=== PATIENT | female | born 1980 | race African-American/Black ===

== ENCOUNTER 2021-07-26 16:18 | Outpatient (CLI) | payer BC, SELFPAY ==
--- NOTE | ~2021-07-26 | US_ITS ---
EXAMINATION: US pelvic complete w TV DATE: 07/26/2021 17:08 INDICATION: Leiomyoma of uterus, unspecified. TECHNIQUE: Multiple transabdominal and transvaginal sonographic images of the pelvis were obtained. COMPARISON: Ultrasound 05/28/2011 FINDINGS: TRANSABDOMINAL ULTRASOUND: The uterus measures 15.3 x 13.8 x 7.9 cm. There is a 7.2 cm intramural fibroid. There is a 6.7 cm sub serosal fibroid in the right. There is a 3.0 cm intramural fibroid. There is a 4.2 cm intramural fibr oid. There is no free fluid in the pelvis. TRANSVAGINAL ULTRASOUND: The endometrial complex measures 10 mm in thickness. The ovaries are not visualized. IMPRESSION: 1. Uterine fibroids. Reviewed, dictated and finalized at location A. EPERSON IMPRESSION: 1. Uterine fibroids.
== END 2021-07-26 16:19 | disposition home or self-care (01) ==
LOC: ANHIMG 16:20
PROVIDERS: PCP Internal Medicine; Visit Provider Obstetrics & Gynecology
DX: D25.9 Leiomyoma of uterus, unspecified (principal)
CPT/HCPCS: 76830; 76856

== ENCOUNTER → 2021-11-16 16:25 | Outpatient (CLI) | payer BC, SELFPAY ==
--- NOTE | ~2021-11-16 | MM_ITS ---
EXAMINATION: MM screening ramakrishna BI w miri HISTORY: Screening mammogram TECHNIQUE: Craniocaudal and mediolateral oblique 3-D tomosynthesis images were obtained and synthetic 2-D images were generated. CAD analysis was submitted and interpreted. COMPARISON: 11/21/2015 Limited right breast ultrasound BREAST PARENCHYMAL COMPOSITION: The breasts are heterogeneously dense, which may obscure small masses . FINDINGS: There is no evidence of suspicious mass, calcification, or architectural distortion to sugg est malignancy in either breast. There has been no suspicious interval change. IMPRESSION: 1. No mammographic evidence of malignancy. 2. Recommend routine screening mammography in one year. BI-RADS Category 1: Negative Reviewed, dictated and finalized at location A.
== END ==
PROVIDERS: PCP Internal Medicine; Visit Provider Obstetrics & Gynecology
DX: Z12.31 Encounter for screening mammogram for malignant neoplasm of breast (principal)
CPT/HCPCS: 77063; 77067

== ENCOUNTER 2023-04-16 09:25 | Outpatient (CLI) | payer OTHER, SELFPAY ==
[2023-04-16 10:08] LABS: Hematocrit 29.4 % (37.0-47.0); Hemoglobin 8.3 g/dL (12.0-15.0); Mean Corpuscular HGB Conc 28.2 g/dl (32-36); Mean Corpuscular Hemoglobin 21.6 pg (26-34); Mean Corpuscular Volume 76.6 fl (80-100); Platelet Count Result 455 k/mm3 (150-375); Red Blood Count 3.84 M/mm3 (4.2-5.4); Red Cell Distribution Width 24.1 % (11.5-14.5); White Blood Count 6.1 K/mm3 (4.5-10.0)
== END 2023-04-16 09:26 | disposition home or self-care (01) ==
PROVIDERS: PCP Internal Medicine; Visit Provider Obstetrics & Gynecology
DX: N93.9 Abnormal uterine and vaginal bleeding, unspecified (principal); D25.9 Leiomyoma of uterus, unspecified
CPT/HCPCS: 36415; 85027; 86850; 86900; 86901

== ENCOUNTER 2023-04-19 11:45 | Inpatient (IN) | payer OTHER, SELFPAY ==
[2023-04-11 17:57] VITALS: BMI 26.1
--- NOTE | 2023-04-11 18:04 | PC.NURSE ---
Report to the Outpatient Waiting Room, entrance under the green pavilion located off [facility], at 0600 on 04-19-23. Planned Procedure Time: 0730. Time changes happen often and if your time is changed the preop area will call you the afternoon before. - You and your visitor will be asked to self-screen and do not enter if you have any COVID symptoms. - A mask is optional within the hospital at this time. Patients may have clear liquids (water, carbonated beverages, clear teas, apple juice) until 3 hours prior to surgery with a maximum of 20 ounces. 0430 - No food from midnight until time of surgery - Infants may have breast milk until 4 hours before surgery, formula 6 hours prior to surgery. - Children will be allowed to drink immediately following surgery. If applicable, please bring a bottle or sippy cup to assist with drinking. Juice, water, soda, and popsicles are readily available. For infants on formula, please bring formula the day of surgery. Pacifiers are allowed. Take the following medications with a SIP of water the morning of surgery: None DO NOT STOP ANY OF YOUR OTHER PRESCRIPTION MEDICATIONS PRIOR TO SURGERY ?EXCEPT THE FOLLOWING Medications to discontinue per physician: Vitamins and supplements Date to take last dose: 04-16-23 Please no make-up, nail bruneian, hairspray, perfume, deodorant, or body powder the day of surgery. No jewelry (including any body piercings) or valuables the day of surgery, leave them at home. Please take a shower or bath the night before, or the morning of, surgery with an antibacterial soap. Wear comfortable, loose fitting clothing. Children are encouraged to wear pajamas. - Jewelry must be removed prior to entering the operating room. Rings and piercings that are not removed may be cut off. - The hospital will not accept responsibility for valuables. - Please leave all valuables, including medications, at home the day of surgery. If you are going home after surgery, a licensed school bus driver/custodian must drive you home. - NO public transportation without another adult if you receive anesthesia. - We recommend that an adult stay with you for 24 hours following discharge. - We also recommend that you do not drive, make important decision, drink alcoholic beverages, or take any drugs that were not prescribed by your health care provider for at least 24 hours after your discharge time. For Pediatric surgeries, we recommend two adults accompany the child home. Follow any additional instructions given to you from your surgeon. If you or anyone in your household have experienced Covid symptoms in the past week, please notify your surgeon or the nurse liaison at the phone number below for possible testing. Telephone instructions given to Kimberlyn Cosby and asked if any additional questions and then verbalized understanding. Patient advised to call surgeon office or pre surgery nurse liaison [phone] if any additional questions.
--- NOTE | 2023-04-18 16:43 | PM.IMHP ---
H&P: HPI History of Present Illness Date/Time: 04/18/23 16:43 Chief Complaint: Symptomatic fibroid uterus Narrative: Patient is a 42-year-old with known fibroid uterus causing severe anemia. She has had a prior blood transfusion she is currently getting iron infusions. She has had a normal endometrial biopsy. She has opted for hysterectomy. She does not have any desire for future childbearing. Review of Systems Review of Systems: All systems reviewed & are unremarkable except as noted in HPI and below Cardiovascular: Cardiovascular: Reports no additional cardiovascular complaints, Denies chest pain and Denies dyspnea Respiratory: Respiratory: Reports no additional respiratory complaints and Denies dyspnea Gastrointestinal: Gastrointestinal: Reports abdominal pain, Denies change in bowel habits, Denies diarrhea, Denies nausea and Denies vomiting Genitourinary: Genitourinary: Reports pelvic pain Musculoskeletal: Musculoskeletal: Reports back pain Integumentary/Breasts: Skin/Breast: Reports system reviewed and no additional complaints, except as docu Neurologic: Reports system reviewed and no additional complaints, except as documented [facility] Past Medical History Medical History Anemia Enlarged uterus Fibroid Surgical History Surgical History Previous section Family History Family History Father Family history of elevated blood lipids Family history of diabetes mellitus in first degree relative Mother Family history of elevated blood lipids Other Cerebrovascular accident Social History Social History Smoking status: Never smoker Second hand tobacco smoke exposure: No Alcohol intake: current Alcohol use details: sometimes Substance use: never Substance use type: does not use Lack of Transportation: No Lack of Food: Never True Current Housing: I Have Housing Concerned About Future Housing: No Difficulty Paying Gas/Electric Bills: No Difficulty Paying for Meds: No Currently Unemployed: No Education: Bachelor's Degree Difficulty w/ Childcare or Family Care: No Living arrangements: with family Spiritual care concerns: No Meds Home Medications and Allergies Home Medications Medication Instructions Recorded Confirmed Type ascorbic acid (vitamin C) 25 mg 25 mg PO DAILY 04/11/23 04/11/23 History tablet cholecalciferol (vitamin D3) 25 25 mcg PO DAILY 04/11/23 04/11/23 History mcg (1,000 unit) capsule (Vitamin D3) polysaccharide iron complex 150 mg 150 mg PO DAILY 04/11/23 04/11/23 History iron capsule vits 75-iron 28 mg-folic See Rx Instructions .Route .COMPLEX 04/11/23 04/11/23 History acid 800 mcg-omega3 440 mg oral pack Allergies Allergy/AdvReac Type Severity Reaction Status Date / Time No Known Allergies Allergy Mild Verified 04/11/23 17:34 Exam Const: Orientation/consciousness: oriented to person and oriented to place HENMT: Head: normal to inspection Eyes: General: appearance normal, both eyes and all related structures Resp: Effort & Inspection: normal respiratory effort Auscultation: clear to auscultation bilaterally Cardio: Rate: regular rate Rhythm: regular rhythm GI: Inspection: normal to inspection GI Palp: No Rebound tenderness present Other: uterus palpable at 16-18 weels Neuro: General: oriented to person and oriented to place Cognition (Neuro): normal cognition Extrem: General: normal to inspection Psych: Appearance: grossly normal and well kempt Assessment and Plan Assessment and plan (1) Fibroid uterus: Code(s): D25.9 - Leiomyoma of uterus, unspecified Status: Acute Assessment and Plan: Will proceed with total
[2023-04-19] VITALS (10 sets, daily range): BP systolic 115–140; BP diastolic 68–83; PULSE 58–79; RESP 10–18; TEMP 36.3–37.2; O2SAT 99–100
[2023-04-19] MEDS: KETOROLAC 15 MG/ML VIAL (*BKC) IV PUSH (06:40)
[2023-04-19] MEDS: ACETAMINOPHEN 500 MG TABLET 1000 MG PO (06:40)
--- NOTE | 2023-04-19 07:02 | WPDANESEPPF ---
Anes - Initial Pre Proc Eval Procedure: Operation Date: 04/19/23 07:30 Proposed Procedures p Total Abdominal Hysterectomy, Bilateral Salpingectomy, Bilateral Oophorectomy - Bam Horton MD Date/Time: 04/19/23 07:02 Surgeon: Bam Horton MD Pre Op Diagnosis: fibroid uterus Patient Data Age: 42 Gender: F Height: 1.63 m Weight: 68.95 kg Allergies Allergy/AdvReac Type Severity Reaction Status Date / Time No Known Allergies Allergy Mild Verified 04/11/23 17:34 Home Medications Medication Instructions Recorded Confirmed Type ascorbic acid (vitamin C) 25 mg 25 mg PO DAILY 04/11/23 04/11/23 History tablet cholecalciferol (vitamin D3) 25 25 mcg PO DAILY 04/11/23 04/11/23 History mcg (1,000 unit) capsule (Vitamin D3) polysaccharide iron complex 150 mg 150 mg PO DAILY 04/11/23 04/11/23 History iron capsule vits 75-iron 28 mg-folic See Rx Instructions .Route .COMPLEX 04/11/23 04/11/23 History acid 800 mcg-omega3 440 mg oral pack Patient hx anesthesia problems: none Family hx anesthesia problems: none Results Review: All pre-operative results and documents have been reviewed as part of the pre-operative evaluation. [facility] Past Medical History Medical History Anemia Enlarged uterus Fibroid Surgical History Surgical History Previous section Family History Family History Father Family history of elevated blood lipids Family history of diabetes mellitus in first degree relative Mother Family history of elevated blood lipids Other Cerebrovascular accident Social History Social History Smoking status: Never smoker Second hand tobacco smoke exposure: No Alcohol intake: current Alcohol use details: sometimes Substance use: never Substance use type: does not use Lack of Transportation: No Lack of Food: Never True Current Housing: I Have Housing Concerned About Future Housing: No Difficulty Paying Gas/Electric Bills: No Difficulty Paying for Meds: No Currently Unemployed: No Education: Bachelor's Degree Difficulty w/ Childcare or Family Care: No Living arrangements: with family Spiritual care concerns: No Anes - Eval Final PreProcedure Day of Procedure 04/19/23 07:02 Patient weight: overweight Heart: regular rate and rhythm Lungs: clear to auscultation Airway: Mallampati scale class III Neurological: alert and oriented Last oral intake: >/= 8 hours ASA classification: II Emergent: no Anesthetic plan: proceed Anesthesia type and monitoring: general ETT and standard monitoring Results Review: All pre-operative results and documents have been reviewed as part of the pre-operative evaluation. Informed Consent: The patient's anesthetic plan and its attendant risks and benefits were discussed with the patient/family/POA. Questions were solicited and answers provided to the satisfaction of the patient/family/POA.
--- NOTE | 2023-04-19 07:21 | WPDHPUPDATE1 ---
History and Physical Update Update Date/Time: 04/19/23 07:21 History and Physical has been reviewed, including an updated exam of the patient. There are NO changes in the patient's condition. Risks, benefits, and alternatives have been discussed and questions answered. Patient agrees to proceed with procedure.
[2023-04-19] MEDS: ceFAZolin 2 GM/D5W 50 ML 2 GM/50 ML BAG IVPB (07:30)
[2023-04-19] MEDS: metroNIDAZOLE 500 MG/ISO 100ML 500 MG/100 ML BAG 100 MG IVPB (08:00)
[2023-04-19] MEDS: LACTATED RINGERS 1,000 ML 30 ML IV CONT ×2 (10:00)
[2023-04-19] MEDS: fentaNYL CITRATE INJ (*CRX) 100 MCG/2 ML VIAL 25 MCG IV PUSH ×6 (10:26→10:50)
--- NOTE | 2023-04-19 10:51 | W.PM.PROC2 ---
Procedure Note - Detailed Date of Procedure 04/19/23 Pre-op Diagnosis fibroid uterus Post-op Diagnosis Same Procedure Performed 1.Total abdominal hysterectomy bilateral salpingectomy 2. Lysis of adhesions Surgeon Bam Horton MD [employer] Anesthesia General Indications Patient with known fibroid uterus and history of severe anemia requiring blood transfusion, declined hormonal management of heavy periods in the past. She has decided on definitive treatment with hysterectomy. Findings Large uterus with large subserosal, intramural, right broak ligament fibroid, most EBL from back bleeding from uterus, due to severe anemia prior to procedure and the back bleeding she was given 1unit PRBC intraop. There was larger adhesion band of left pericolic fat to left side of uterus which was lysed. Description of Procedure After informed consent was obtained. She was taken to operating room and general anaesthetic was administered. She was placed in the supine position.A andrade catheter inserted. She was prepped and draped in the usual sterile fashion. A Pfannensteil skin incision was made through the patient?s previous incision. The incision was carried down to the fascia with scalpel. The fascia was incised transversely and dissected off the rectus muscle superiorly and inferiorly using sharp and cautery dissection. Electrocautery was used for hemostasis. The peritoneum was tented was tented grasped with apple clamp and incised and opened taking care not to injure any underlying structures.The pelvic organs were visualized. The uterus was enlarged and irregular with multiple fibroids and larger subserosal fibroid. The uterus was delivered through the incision. Adhesion of the pericolon fat to the left of the uterus was lysed. Packing was placed posterior cul de sac. The tubes and ovaries appeared normal bilaterally. The cornea were grasped using Oakman clamp and the uterus elevated. The round ligament on the left was grasped and divided using cautery and then suture ligated. . The anterior leaf of the broad ligament was divided and a bladder flap created. The right fallopian tube was ligated using the LigaSure. The posterior leaf of the broad ligament was dissected. The ascending uterine vessels were cauterized. There was a fibroid at the border of the uterine vessels and the broad ligament which was vascular. LigaSure and suture 0 Vicryl were used for hemostasis. At this time she did have significant amount of back bleeding from the uterus and due to her low hemoglobin before surgery decision was made to give her 1 unit of PRBCs. The uterine vessels were skeletonized and clamped and ligated with LigaSure and suture ligated. Attention was then turned to the left round ligament which was suture ligated and then ligated with the LigaSure. The anterior leaf of the broad ligament was dissected anteriorly. The rest of the bladder was dissected off of the lower uterine segment and the cervix using cautery and blunt dissection. The uterine vessels were skeletonized on the left and ligated with LigaSure. The cardinal ligaments were bilaterally ligated with LigaSure. The uterosacral and vaginal cuff was clamped with Z clamps. The cervix was then cut from the vagina. Both corners of the vaginal vault were secured and ligated with 0 Vicryl on both sides. The vaginal cuff was closed with several [id number] sutures of 0 Vicryl. Hemostasis was noted. All pedicles were then sequentially checked for hemostasis which appeared excellent. The pelvis was irrigated. Hematoma placed. The packing was removed from the abdomen. The sponge count was correct. The muscle bellies were inspected and noted to be hemostatic. The fascia was closed using a running suture of 0 Vicryl. Subcutaneous tissue was inspected and hemostasis ensured with cautery. The subcutaneous tissue was approximated with 3-0 Vicryl. The skin was closed with a running subcuticular suture 4-0 Vicr
[2023-04-19] MEDS: DEXTROSE 5%/LACTATED RINGERS 1,000 ML 125 ML IV CONT (12:06)
[2023-04-19] MEDS: KETOROLAC 30 MG/ML VIAL (*BKC) IV PUSH ×2 (12:15→19:17)
[2023-04-19] MEDS: MORPHINE SULFATE (*CRX) 4 MG/ML INJ IV PUSH (14:22)
[2023-04-19] MEDS: ONDANSETRON INJ 4 MG/2 ML VIAL IV PUSH (14:23)
[2023-04-19] MEDS: LIDOCAINE 5% PATCH 1 PATCH TRANSDERM (14:23)
[2023-04-19] MEDS: HYDROcodone/acetaminophen (*CRX) 5-325 MG TABLET 1 TAB PO (14:24)
[2023-04-19] MEDS: ceFAZolin 1 GM/NS 50 ML 1 GM/50 ML BAG IVPB (16:15)
[2023-04-19] MEDS: HYDROcodone/acetaminophen (*CRX) 10-325 MG TABLET 1 TAB PO (19:18)
[2023-04-19] MEDS: SENNA/DOCUSATE SODIUM TABLET 2 TAB PO (21:55)
[2023-04-20] VITALS (8 sets, daily range): BP systolic 84–106; BP diastolic 50–66; PULSE 72–90; RESP 16–18; TEMP 36.8–38.1; O2SAT 97–100
[2023-04-20] MEDS: DEXTROSE 5%/LACTATED RINGERS 1,000 ML 125 ML IV CONT ×2 (00:02→09:01)
[2023-04-20] MEDS: ceFAZolin 1 GM/NS 50 ML 1 GM/50 ML BAG IVPB ×2 (00:02→08:21)
[2023-04-20] MEDS: KETOROLAC 30 MG/ML VIAL (*BKC) IV PUSH (02:04)
[2023-04-20] MEDS: HYDROcodone/acetaminophen (*CRX) 10-325 MG TABLET 1 TAB PO ×4 (02:05→16:27)
[2023-04-20 05:27] LABS: Hematocrit 24.9 % (37.0-47.0); Hemoglobin 7.6 g/dL (12.0-15.0); Mean Corpuscular HGB Conc 30.5 g/dl (32-36); Mean Corpuscular Hemoglobin 23.5 pg (26-34); Mean Corpuscular Volume 77.1 fl (80-100); Mean Platelet Volume 9.9 fl (7.4-10.4); Platelet Count Result 334 k/mm3 (150-375); Red Blood Count 3.23 M/mm3 (4.2-5.4); Red Cell Distribution Width 21.1 % (11.5-14.5); White Blood Count 8.3 K/mm3 (4.5-10.0)
[2023-04-20] MEDS: LIDOCAINE 5% PATCH 1 PATCH TRANSDERM (08:41)
--- NOTE | 2023-04-20 09:18 | PM.GYNPNOP ---
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 Continue pain management. Encourage ambulation. (2) Severe anemia: Code(s): D64.9 - Anemia, unspecified Status: Acute Assessment and Plan: Asymptomatic. Urinating well. Post op H/H appropriate for prior anemia and EBL. Iron therapy. Postoperative Procedures: Procedures Operation Date: 04/19/23 07:30 Actual Procedure Side Surgeon p Total Abdominal Hysterectomy, Bilateral Salpingectomy Bilateral Bam Horton MD Time Spent With Patient Time: Total time spent is greater than 50% in coordination of care (as documented) at patient's floor/unit and/or counseling patient: Time with patient: less than 15 minutes [employer]- PN:Subj Post-Op Subjective Date/time seen: 04/20/23 09:18 Interval history: She states pain better with binder, no leg pain, denies SOB or CP. No lightheadedness or dizziness. Tolerating regular food. No flatus. Exam Const: General: comfortable and no acute distress Eyes: General: appearance normal, both eyes and all related structures Chest: Chest palpation & inspection: normal inspection of the chest Resp: Effort & Inspection: normal respiratory effort Auscultation: clear to auscultation bilaterally Cardio: Rate: regular rate Rhythm: regular rhythm GI: Other: good BS throughout , soft, appropriate tender, incision intact, no drainage Neuro: General: oriented to person, oriented to place and oriented to time Extrem: General: normal to inspection and no calf tenderness Psych: Appearance: grossly normal [employer] - PN: Obj Data Vital Signs Vital Signs: Vital Signs - 24 hr 04/19/23 10:00 04/19/23 10:15 04/19/23 10:30 Temperature 98.2 F Pulse Rate 65 60 63 Respiratory Rate 10 L 12 12 Blood Pressure 115/69 137/83 123/72 Pulse Oximetry 100 100 100 Oxygen Delivery Simple Face Mask Simple Face Mask Room Air Oxygen Flow Rate 8 8 04/19/23 10:45 04/19/23 11:00 04/19/23 11:15 Temperature Pulse Rate 61 59 L 63 Respiratory Rate 12 12 14 Blood Pressure 119/77 133/72 134/75 Pulse Oximetry 100 100 100 Oxygen Delivery Room Air Room Air Room Air Oxygen Flow Rate 04/19/23 11:45 04/19/23 16:45 04/19/23 19:30 Temperature 97.7 F 98.4 F 99.0 F Pulse Rate 58 L 75 79 Respiratory Rate 16 14 18 Blood Pressure 137/77 121/77 121/68 Pulse Oximetry 100 99 Oxygen Delivery Oxygen Flow Rate 04/20/23 00:00 04/20/23 04:30 Temperature 98.5 F 99.1 F Pulse Rate 72 72 Respiratory Rate 16 16 Blood Pressure 98/63 L 96/58 L Pulse Oximetry 99 100 Oxygen Delivery Oxygen Flow Rate Intake/Output Intake/Output: Intake & Output 04/17/23 04/18/23 04/19/23 04/20/23 23:59 23:59 23:59 23:59 Intake Total 1750 1050 Output Total 685 1660 Balance 1065 -610 Meds/Results Medications: Active Medications Generic Name Dose Route Start Last Admin Trade Name Freq PRN Reason Stop Dose Admin Hydrocodone Bitart/Acetaminophen 1 tab 04/19/23 10:43 04/19/23 14:24 Hydrocodone/Acetaminophen (*Crx) 5-325 Mg Tablet PO 1 tab Q3H PRN Administration Pain Rated 5 or Less Hydrocodone Bitart/Acetaminophen 1 tab 04/19/23 10:43 04/20/23 08:38 Hydrocodone/Acetaminophen (*Crx) 10-325 Mg Tablet PO 1 tab Q3H PRN Administration Pain Rated 6 or Greater Dextrose/Lactated Ringer's 1,000 mls @ 125 mls/hr 04/19/23 10:45 04/20/23 09:01 Dextrose 5%/Lactated Ringers IV CONT 125 mls/hr .Q8H KRYSTAL Administration Cefazolin Sodium 1 gm in 50 mls @ 100 mls/hr 04/19/23 16:00 04/20/23 08:21 Ancef 1 Gm/Ns 50 Ml IVPB 100 mls/hr Q8H KRYSTAL Administration Ketorolac Tromethamine 30 mg 04/19/23 10:43 04/20/23 02:04 Ketorolac 30 Mg/Ml Vial (*Bkc) IV PUSH 04/24/23 10:42 30 mg Q6H PRN Administration Pain Rated 4-6 Lidocaine 1 patc
--- NOTE | 2023-04-20 09:54 | WPDANESPN ---
Anes - Prog Note Post-Op Date/Time: 04/20/23 09:54 Cardiovascular status: normal Respiratory status: normal Airway patency: baseline Mental status: baseline Post-Op hydration status: normal Vital Signs: Last Vital Signs Temp 98.3 F 04/20/23 08:05 Pulse 74 04/20/23 08:05 Resp 18 04/20/23 08:05 BP 84/50 L 04/20/23 08:05 Pulse Ox 100 04/20/23 08:05 O2 Del Method Room Air 04/19/23 11:15 O2 Flow Rate 8 04/19/23 10:15 Pain Score (VAS): 4 I/O: Intake & Output 04/19/23 04/20/23 04/20/23 23:59 07:59 15:59 Intake Total 1100 50 1700 Output Total 575 1660 250 Balance 525 -1610 1450 Laboratory Tests 04/20/23 04:14 04/20/23 04:14 WBC 8.3 RBC 3.23 L Hgb 7.6 L Hct 24.9 L MCV 77.1 L MCH 23.5 L D MCHC 30.5 L RDW 21.1 H Plt Count 334 MPV 9.9 Post-procedural complaints: none Patient Feedback: Patient satisfied with anesthetic care.
[2023-04-20] MEDS: CHOLECALCIFEROL 1,000 UNITS TABLET 1000 UNITS PO (13:12)
[2023-04-20] MEDS: FERROUS SULFATE 325 MG TABLET DR PO (16:28)
[2023-04-20] MEDS: SIMETHICONE 80 MG TAB.CHEW PO (17:13)
[2023-04-20] MEDS: IBUPROFEN 600 MG TABLET PO (18:20)
[2023-04-20] MEDS: HYDROcodone/acetaminophen (*CRX) 5-325 MG TABLET 1 TAB PO (21:50)
[2023-04-20] MEDS: SENNA/DOCUSATE SODIUM TABLET 2 TAB PO (21:50)
[2023-04-21 07:15] VITALS: BP 106/59; PULSE 73; RESP 16; TEMP 36.9; O2SAT 100
[2023-04-21] MEDS: FERROUS SULFATE 325 MG TABLET DR PO (07:21)
[2023-04-21] MEDS: HYDROcodone/acetaminophen (*CRX) 5-325 MG TABLET 1 TAB PO (07:22)
[2023-04-21] MEDS: IBUPROFEN 600 MG TABLET PO (07:22)
[2023-04-21] MEDS: CHOLECALCIFEROL 1,000 UNITS TABLET 1000 UNITS PO (07:22)
--- NOTE | 2023-04-21 07:48 | PM.GYNPNOP ---
[employer] SUPERVISOR - A/P Postoperative Procedures: Procedures Operation Date: 04/19/23 07:30 Actual Procedure Side Surgeon p Total Abdominal Hysterectomy, Bilateral Salpingectomy Bilateral Bam Horton MD Time Spent With Patient Time: Total time spent is greater than 50% in coordination of care (as documented) at patient's floor/unit and/or counseling patient: Time with patient: less than 15 minutes [employer] SUPERVISOR- PN:Subj Post-Op Subjective Date/time seen: 04/21/23 07:48 S: Diet and ambulation tolerated ambulates without difficulty O: Vital signs stable afebrile Abdomen positive bowel sounds soft incision covered Labs: None new A: Postoperative day 2 status post abdominal hysterectomy P: Discharge home with usual discharge instructions. Questions are answered. No significant concerns. Interval history: She states pain better with binder, no leg pain, denies SOB or CP. No lightheadedness or dizziness. Tolerating regular food. No flatus. [employer]NA[employer] SUPERVISOR - PN: Obj Data Vital Signs Vital Signs: Vital Signs - 24 hr 04/20/23 13:18 04/20/23 13:18 04/20/23 11:55 Temperature 98.8 F 98.8 F 98.8 F Pulse Rate 72 72 72 Respiratory Rate 16 16 18 Blood Pressure 95/56 L 95/56 L 95/56 L Pulse Oximetry 100 100 100 Oxygen Delivery 04/20/23 16:00 04/20/23 19:25 04/20/23 19:25 Temperature 99.5 F 100.5 F H Pulse Rate 90 85 85 Respiratory Rate 16 16 16 Blood Pressure 105/66 106/60 Pulse Oximetry 99 97 97 Oxygen Delivery Room Air 04/20/23 22:04 Temperature 99.6 F Pulse Rate Respiratory Rate Blood Pressure Pulse Oximetry Oxygen Delivery Intake/Output Intake/Output: Intake & Output 04/18/23 04/19/23 04/20/23 04/21/23 23:59 23:59 23:59 22:59 Intake Total 1750 1750 Output Total 109 2910 Balance 1065 -1160 Meds/Results Medications: Active Medications Generic Name Dose Route Start Last Admin Trade Name Freq PRN Reason Stop Dose Admin Hydrocodone Bitart/Acetaminophen 1 tab 04/19/23 10:43 04/21/23 07:22 Hydrocodone/Acetaminophen (*Crx) 5-325 Mg Tablet PO 1 tab Q3H PRN Administration Pain Rated 5 or Less Hydrocodone Bitart/Acetaminophen 1 tab 04/19/23 10:43 04/20/23 16:27 Hydrocodone/Acetaminophen (*Crx) 10-325 Mg Tablet PO 1 tab Q3H PRN Administration Pain Rated 6 or Greater Ferrous Sulfate 325 mg 04/20/23 17:00 04/21/23 07:21 Ferrous Sulfate [address] PO 325 mg BID KRYSTAL Administration Ibuprofen 600 mg 04/20/23 09:33 04/21/23 07:22 Ibuprofen 600 Mg Tablet PO 600 mg Q6H PRN Administration Cramping Lidocaine 1 patch 04/19/23 12:40 04/20/23 08:41 Lidocaine 5% Patch TRANSDERM 1 patch DAILY KRYSTAL Administration Morphine Sulfate 4 mg 04/19/23 10:43 04/19/23 14:22 Morphine Sulfate (*Crx) 4 Mg/Ml Inj IV PUSH 4 mg Q4H PRN Administration Pain Rated 7-10 Ondansetron HCl 4 mg 04/19/23 10:43 04/19/23 14:23 Ondansetron Inj 4 Mg/2 Ml Vial IV PUSH 4 mg Q6H PRN Administration Nausea Polysaccharide Iron Complex 150 mg 04/21/23 09:00 Polysaccharide Iron Complex 150 Mg Capsule PO DAILY KRYSTAL Senna/Docusate Sodium 2 tab 04/19/23 21:00 04/20/23 21:50 Senna/Docusate Sodium Tablet PO 2 tab HS KRYSTAL Administration Simethicone 80 mg 04/19/23 10:47 04/20/23 17:13 Simethicone 80 Mg Tab.Chew PO 80 mg Q2H PRN Administration Gas Vitamin D 1,000 units 04/20/23 12:00 04/21/23 07:22 Cholecalciferol 1,000 Units Tablet PO 1,000 units DAILY KRYSTAL Administration Labs 04/20/23 04:14
--- NOTE | 2023-05-06 14:17 | PM.DS ---
DS: Admitting Diagnosis Discharge Date 04/21/23 Admitting Diagnosis fibroid uterus/ anemia DS: Summary Hospital Course Hospital Course: 42-year-old female admitted for abdominal hysterectomy by Dr. Mancuso. Underwent procedure without difficulty was just charged home on the 3rd postoperative day. Time Spent with Patient Time attestation: Total time spent providing and/or coordinating discharge services: DS: Data Data Completed and Pending Completed studies during hospitalization: Pending at discharge 04/19/23 09:18 Surgical [PTH] Routine Discharge Plan Discharge Attending physician on discharge: Bam Horton Consulting providers: Renan Lopez; Diana Astudillo Discharging Clinician: Ronald Morley Patient Disposition: Home, Self-Care Activity: may shower, no straining, no driving, follow weight bearing status and pelvic rest Diet: regular Patient Instructions: Hysterectomy (DC) Stand Alone Forms: General Discharge Information Follow-up/Referrals: Bam Horton MD [Physician] - Keep Reg. Scheduled Appt. Discharge Medications: New hydrocodone-acetaminophen 5-325 mg Tablet 1 tablet PO Q3H PRN (Reason: Pain Rated 5 Or Less) Qty: 25 0RF ferrous sulfate 325 mg (65 mg iron) Tablet,Delayed Release (Dr/Ec) 325 mg PO BID Qty: 60 0RF Continued polysaccharide iron complex 150 mg iron capsule 150 mg PO DAILY cholecalciferol (vitamin D3) [Vitamin D3] 25 mcg (1,000 unit) Capsule 25 mcg PO DAILY ascorbic acid (vitamin C) 25 mg Tablet 25 mg PO DAILY [id number] fum-folic ac-om3 [id number] mg-mcg-mg Combo Pack See Rx Instructions .ROUTE .COMPLEX Rx Instructions: patient takes daily Date of admission: 04/19/23 11:45 Primary Care Provider: Poonam,Cassandra Admitting Provider: Bam Horton Attending physician on admission: Ronald Morley Condition: Stable
== END 2023-04-21 10:17 | disposition home or self-care (01) | DRG 743 ==
LOC: ANHOB2 11:47
PROVIDERS: Admitting Provider Obstetrics & Gynecology; PCP Internal Medicine; Visit Provider Obstetrics & Gynecology
PROC: 0UT94ZZ Resection of Uterus, Percutaneous Endoscopic Approach (ICD-10-PCS; principal; 2023-04-19 07:30)
DX: D25.9 Leiomyoma of uterus, unspecified (principal); N92.0 Excessive and frequent menstruation with regular cycle; D50.0 Iron deficiency anemia secondary to blood loss (chronic)
CPT/HCPCS: 36415; 36430; 85027; 86850; 86900; 86901; 86923; 88307; A9270; J0690; J1100; J1170; J1200; J1836; J1885; J2250; J2270; J2405; J2704; J3010; J7120; J7121; P9016

== ENCOUNTER 2024-11-30 10:26 | Outpatient (CLI) | payer OTHER, SELFPAY ==
--- NOTE | ~2024-11-30 | MMUS_ITS ---
EXAMINATION: MM diagnostic ramakrishna BI w miri, US breast BI complete HISTORY: Palpable breast lump TECHNIQUE: Additional 3-D tomosynthesis images of the breasts were performed and synthetic 2-D images were generated. CAD analysis was submitted and interpreted. High resolution bilateral complete breas t ultrasound was performed. COMPARISON: Comparison to multiple prior studies sequentially, with oldest reviewed study dated 07/2021. BREAST PARENCHYMAL COMPOSITION: Dense: The breasts are heterogeneously dense, which may obscure small masses FINDINGS: MAMMOGRAPHIC FINDINGS: There is a mass in the upper outer quadrant of the right breast, posterior third. This is partially i s obscured by fibroglandular content. There is a small mass in the lower inner quadrant of the left b reast posterior to the nipple, anterior third. ULTRASOUND: Complete US of all 4 quadrants of the breast/s and retroareolar region was reviewed. Right breast: Multiple simple and complicated cysts of the right breast, largest measuring 1.9 cm at 10:00, 8 cm from the nipple corresponding to the mammographic abnormality. There is a cluster of micr ocysts at 12:00, 4 cm from the nipple measuring 7 mm. Left breast: In the area of palpable concern there is no discrete mass. At 4:00, 9 cm from the nipple there is 4 mm cyst. At 5:00, 2 cm from the nipple there is an oval hypoechoic mass measuring 9 x 7 x 4 mm without internal vascularity or posterior features, likely benign. IMPRESSION: 1. No evidence for malignancy in the right breast. Probable benign left breast mass at 5:00, 2 cm fro m the nipple measuring 9 mm. 2. Recommend 6 month follow-up Limited left breast ultrasound BI-RADS category 3, probably benign findings. Reviewed, dictated and finalized at location A. IMPRESSION: 1. No evidence for malignancy in the right breast. Probable benign left breast mass at 5:00, 2 cm from the nipple measuring 9 mm. 2. Recommend 6 month follow-up Limited left breast ultrasound BI-RADS category 3, probably benign findings.
--- OUTSIDE RECORDS SUMMARY | 2024-11-30 11:22 | XMS_ITS | Clinical Summary ---
Author Organization [facility] Address [address] [place] [address] Care Team Providers Care Manager Integration Name Role Phone Cassandra Levin MD Primary Care Provider [phone]- [phone] Allergies No known active allergies Medications 25/iron fum/folic/dha (-1 ORAL) Take 1 tablet by mouth daily Active iron ag,[id number]-B12- Zn-sa-sto (Niferex, Sumalate-Quatref olic,) 150 mg iron- 60 mg-1 mg tablet Take 150 mg by mouth daily 07/11/2023 Active cetirizine (ZyrTEC) 10 mg tablet Take 1 tablet (10 mg total) by mouth daily 08/29/2021 Active Active Problems Problem Noted Date Diagnosed Date Iron deficiency anemia, unspecified 10/19/2022 Surgical History Surgery Date Site/Laterality Comments SECTION HYSTERECTOMY Social History Tobacco Use Types Packs/Day Years Used Date Smoking Tobacco: Never Smokeless Tobacco: Never Tobacco Cessation:Counseling Given: Not Answered AUDIT-C Answer Date Recorded Q1: How often do you have a drink containing alc ohol? Monthly or less 01/15/2023 Average Number of Drinks Not on file 023 Q3: How often do you have si x or more drinks on one occasion? Never 01/15/2023 Comments No Sex and Gender Information Value Date Recorded Sex Assigned at Not on file Legal Sex Female 9:16 PM RETAIL ACCOUNT MANAGER Gender Identity Not on file Sexual Orientation Not on file Obstetrics History Para Term AB IAB SAB Ectopic Multiple Livin g Live Births 1 1 1 Date Outcome GA Total Labor Labor/2nd/3rd Weight Sex Type Anes PTL Jeannie A1 A5 Name Clin 2004 Term F CS-LTra nv Last Filed Vital Signs Vital Sign Reading Time Taken Comments Blood Pressure 132/61 04/20/2024 8:52 AM RETAIL ACCOUNT MANAGER Pulse 66 04/20/2024 8:52 AM RETAIL ACCOUNT MANAGER Temperature 36.7 C (98 F) 04/20/2024 8:52 AM RETAIL ACCOUNT MANAGER Respiratory Rate 18 04/20/2024 8:52 AM RETAIL ACCOUNT MANAGER Oxygen Saturation 99% 04/20/2024 8:52 AM RETAIL ACCOUNT MANAGER Inhaled Oxygen Concentration - - Weight 71.7 kg (158 lb) 04/20/2024 8:52 AM RETAIL ACCOUNT MANAGER Height 162.6 cm (5' 4) 04/20/2024 8:52 AM RETAIL ACCOUNT MANAGER Body Mass Index 27.12 04/20/2024 8:52 AM RETAIL ACCOUNT MANAGER Plan of Treatment Health Maintenance Due Date Last Done Comments Depression Screening 1980 Hepatitis C Screening 1980 DTaP/Tdap/Td Vaccine (1 - Tdap) 10/07/1991 Varicella Vaccines (1 of 2 - 13+ 2-dose series) 1993 Hepatitis B Screening 1998 Regular Well Visit/Exam 18-64 1998 Covid-19 Vaccine (2023-2 5 season) 2024 10/15/2020, 10/11/2020, 09/20/2020 Breast Cancer Screening-Mammogram 07/09/2024 07/09/2023, 07/09/2023 Influenza Vaccine (Season Ended) 2025 HPV Vaccines Aged Out No longer eligi ble based on patient's age to complete this topic Pneumococcal vaccine <65 Aged Out No longer eligible based on patient's age to complete this topic Insurance [facility] OOS Member Subscriber Plan / Payer (Ef fective 2018-Present) Name:Kimberlyn Cosby Relation to Subscriber:Self Name:Kimberlyn Cosby Payer ID:[id number] (NAIC) Type:[facility] Address: [address] EMPLOYEES [employer]YEES Care Teams Manager Integration Relationship Specialty Start Date End Date Cassandra Levin MD [address] [place] [address] PCP - General Internal Medicine 03/19/22
--- OUTSIDE RECORDS SUMMARY | 2024-11-30 11:22 | XMS_ITS | Referral Summary ---
Author Organization [facility] Address [address] [place] [address] Care Team Providers Care Train Planner Name Role Phone Cassandra Levin MD Primary Care Provider [phone]- [phone] Allergies No known active allergies Medications 25/iron fum/folic/dha (-1 ORAL) Take 1 tablet by mouth daily Active iron ag,cw-[id number]- Zn-sa-sto (Niferex, Sumalate-Quatref olic,) 150 mg iron- 60 mg-1 mg tablet Take 150 mg by mouth daily 07/11/2023 Active cetirizine (ZyrTEC) 10 mg tablet Take 1 tablet (10 mg total) by mouth daily 08/29/2021 Active Active Problems Problem Noted Date Diagnosed Date Iron deficiency anemia, unspecified 10/19/2022 Social History Tobacco Use Types Packs/Day Years [...] on file Legal Sex Female 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 Gender Identity Not on file Sexual Orientation Not on file Last Filed Vital Signs Vital Sign Reading Time Taken Comments Blood Pressure 132/61 04/20/2024 8:52 AM ELECTRIC MOTOR MECHANIC Pulse 66 04/20/2024 8:52 AM ELECTRIC MOTOR MECHANIC Temperature 36.7 C (98 F) 04/20/2024 8:52 AM ELECTRIC MOTOR MECHANIC Respiratory Rate 18 04/20/2024 8:52 AM ELECTRIC MOTOR MECHANIC Oxygen Saturation 99% 04/20/2024 8:52 AM ELECTRIC MOTOR MECHANIC Inhaled Oxygen Concentration - - Weight 71.7 kg (158 lb) 04/20/2024 8:52 AM ELECTRIC MOTOR MECHANIC Height 162.6 cm (5' 4) 04/20/2024 8:52 AM ELECTRIC MOTOR MECHANIC Body Mass Index 27.12 04/20/2024 8:52 AM ELECTRIC MOTOR MECHANIC Plan of Treatment Not on file Insurance [facility] EM[employer]OYEES [facility] HMO/PPO Address: [address] [address] [place] [address] [facility] EM[employer]YE[employer] [facility] H[employer]/PPO Address: [address] [address] Care Teams Train Planner Relationship Specialty Start Date End Date Cassandra Levin MD [address] [facility] [address] [place], [place] [id number] PCP - General Internal Medicine 03/19/22
--- OUTSIDE RECORDS SUMMARY | 2024-11-30 11:22 | XMS_ITS | Patient Health Record ---
Author Organization [facility] [place] ([address]) Address [address] [place] [address] Care Team Providers Care Telemarketing Manager Name Role Phone Poonam ROSEN, Cassandra Primary Care Provider Brooke Beck Unavailable [phone] Allergies No Known Allergies Reason For Referral No Information Medications Medication SIG (Take, Route, Frequency, Duration) Notes Start Date End Date Status AZELASTINE HYDROCHLORIDE NASAL 137 mcg/inh 2 spray(s) intranasally 2 times a day for 30 day(s) 08/29/2021 Active CETIRIZINE HYDROCHLORIDE 10 mg 1 tab(s) orally once a day 08/29/2021 Active Cetirizine HCl 10 MG 1 tab(s) orally once a day 08/29/2021 Active NASAL WASHES N/A DIRECTED INTRANASALLY NEEDED for 30 *Please review for potential replacement for e-prescription and drug interaction check* 08/29/2021 Active Azelastine HCl 137 MCG/SPRAY 2 spray(s) intranasally 2 times a day for 30 day(s) 08/29/2021 Active Social History Tobacco Use: Social History Observation Description Date Details (start date - stop date) Never Smoker NA - NA Smoking Smart Form: Question Answer Notes Are you a: never smoker Problems Problem Type SNOMED Code ICD Code Onset Dates Problem Status W/U Status Risk Notes Problem Chronic rhinitis (55631738) Chronic rhinitis (J31.0) Active confirmed Problem Hypertrophy of nasal turbinates (15692609) Hypertrophy of nasal turbinates (J34.3) Active confirmed Problem Dysphagia, unspecified (R13.10) Active confirmed Plan Of Treatment No Information Insurance Providers Payer Name Payer Address Payer Phone Subscriber Number Group Number Insured Name Patient Relationship to Insured Coverage Start Date Coverage End Date Leticia NICHOLS [address] [place] [address] [id number] Kimberlyn Cosby Self - patient is the insured Medical (General) History Medical History History ICD Code NONE Surgical History Surgery Date(Month/Year) NONE Hospitalization History Reason Date(Month/Year) NONE
--- OUTSIDE RECORDS SUMMARY | 2024-11-30 11:22 | XMS_ITS ---
Author Organization [facility] [place] ([address]) Address [address] [place] [address] Care Team Providers Care Superintendent Oil Well Services Name Role Phone Cassandra Levin MD Primary Care Provider Brooke Beck Unavailable [phone] [facility]Migration, Provider Unavailable Unavailab le REASON FOR VISIT [facility] Conversion Encounter Medications Medication SIG (Take, Route, Frequency, Duration) Notes Start Date End Date Status Cetirizine HCl 10 MG 1 tab(s) orally once a day 08/29/2021 Active NASAL WASHES N/A DIRECTED INTRANASALLY NEEDED for 30 *Please review for potential replacement for e-prescription and drug interaction check* 08/29/2021 Active Azelastine HCl 137 MCG/SPRAY 2 spray(s) intranasally 2 times a day for 30 day(s) 08/29/2021 Active Encounters Encounter Location Date Provider Diagnosis [facility] [place] [address] [place] [address] 11/30/2023 Provider ZZ-Migration Chronic rhinitis J31.0 Assessments Encounter Date Diagnosis (ICD Code) Assessment Notes Treatment Notes Treatment Clinical Notes Section Notes 11/30/2023 Chronic rhinitis (ICD-10 - J31.0) Plan Of Treatment Medication Medication Name Sig Start Date Stop Date Notes Cetirizine HCl 10 MG 1 tab(s) orally onc e a day 08/29/2021 NASAL WASHES N/A DIRECTED INTRANASALLY NEEDED for 30 08/29/2021 *Please review for potential replacement for e-prescription and drug interaction check* Azelastine HCl 137 MCG/SPRAY 2 spray(s) intranasally 2 times a day for 30 day(s) 08/29/2021 Progress Notes * TARA KimberlynDOB:1980 (44 yo F)Acc No.[id number]:11/30/2023 Patient: Kimberlyn LOMAX Provider: Jasiel Zarate :1980 A ge:43 Y S ex:Female Date:11/30/2023 Address:[facility] Pcp:Cassandra Levin MD Subjective: * Chief Complaints: * 1 . Multum To Medispan Conversion Encounter. * Medical History: Objective: * Vitals: Assessment: * Assessment: 1. C hronic rhinitis - J31.0 (Primary) Plan: * Treatment: * Billing Information: * Visit Code: * Procedure Codes: * Electronic signature of Prov brittanyr [facility]Z-Migration on 11/30/2024 at 11:22 AM CDT Sign off status: Pending * Provider: Jasiel Zarate Date: 11/30/2023 Generated for Delfina ascencio/Bertha/Narda on: 11/30/2024 11:22 AM CDT
--- OUTSIDE RECORDS SUMMARY | 2024-11-30 11:22 | XMS_ITS | Clinical Summary ---
Author Organization [facility] Address [address] [place] [address] Care Team Providers Care Line Construction Supervisor Name Role Phone Cassandra Levin MD Primary Care Provider [phone] Source Comments [facility],non-owned Affiliates and Associated Physician Practices is amultiple site organization consisting of ambulatory clinics and hospital sitesin [place], [place], [place] and [place]. This disclosure is being madepursuant to the Care Everywhere program and may not contain all information available regarding this patient. Last updated 18.[facility] Allergies No known active allergies Medications * Be aware that medications may not be up to date on this document. Alwaysverify current medications with the patient. Vit-DSS-Fe Fum-FA ( vitamin with iron) tablet Take 1 (one) tablet by mouth once daily Active ascorbic acid (Vitamin C) 250 MG tablet Take 1 (one) tablet by mouth once daily Active vitamin D3 (Cholecalciferol) 10 MCG (400 UNIT) tablet Take 1 (one) tablet by mouth once daily Active iron polysaccharides (Niferex 150) 150 MG capsuleIndications:M enorrhagia with regular cycle,Iron deficiency anemia due to chronic blood loss Take 1 (one) capsule by mouth once daily 90 capsule 1 Active Active Problems Problem Noted Date Diagnosed Date Iron deficiency anemia due to chronic blood loss 02/11/2023 Menorrhagia with regular cycle 02/11/2023 Fibroids 02/11/2023 History of severe acute resp iratory syndrome coronavirus 2 (SARS-CoV-2) disease 10/02/2021 07/11/2023 Vitamin D deficiency 04/29/2016 07/11/2023 Social History Tobacco Use Types Packs/Day Years Used Date Smoking Tobacco: Never Smokeless Tobacco: Never Alcohol Use Standard Drinks/Week Comments Not Currently 0 (1 standard drink = 0.6 oz pur e alcohol) PHQ-2 Answer Date Recorded Patient Health Questionnaire-2 Score 0 07/11/2023 Comments Unknown Sex and Gender Information Value Date Recorded Sex Assigned at Not on file Legal Sex Female 5:32 AM CHRONOMETER ADJUSTER Gender Identity Not on file Sexual Orientation Not on file Last Filed Vital Signs Vital Sign Reading Time Taken Comments Blood Pressure 120/84 07/11/2023 1:27 PM CHRONOMETER ADJUSTER Pulse 66 07/11/2023 1:27 PM CHRONOMETER ADJUSTER Temperature 36.4 C (97.5 F) 07/11/2023 1:27 PM CHRONOMETER ADJUSTER Respiratory Rate 16 03/20/2023 11:51 AM CDT Oxygen Saturation 100% 07/11/2023 1:27 PM CHRONOMETER ADJUSTER Inhaled Oxygen Concentration - - Weight 69.6 kg (153 lb 6.4 oz) 07/11/2023 1:27 P M CHRONOMETER ADJUSTER Height 162.6 cm (5' 4) 07/11/2023 1:27 PM CHRONOMETER ADJUSTER Body Mass Index 26.33 07/11/2023 1:27 PM CHRONOMETER ADJUSTER Plan of Treatment Health Maintenance Due Date Last Done Comments LIPID TESTING 1980 PAP SMEAR 1980 HIV SCREENING 10/07/1995 HEPATITIS C SCREENING 10/02/1998 DTAP/TDAP/TD VACCINES (1 - Tdap) 10/07/1999 HEPATITIS B VACCINE (1 of 3 - 19+ 3-dose series) 10/07/1999 COVID-19 VACCINE (4 - 2023-2 5 season) 2024 10/15/2020, 10/11/2020, 09/20/2020 DEPRESSION SCREENING 06/17/2024 07/11/2023, 02/11/2023 INFLUENZA VACCINE (Season Ended) 2025 MAMMOGRAM 07/09/2025 07/09/2023 SCREENING FOR DIABETES 07/11/2026 , 02/11/2023, 01/15/2023 ZOSTER VACCINE (1 of 2) 2030 HIB VACCINE Aged Out No longer eligi ble based on patient's age to complete this topic HPV VACCINE Aged Out No longer eligi ble based on patient's age to complete this topic MENINGOCOCCAL (Group B) VACCINE SHARED DECISION-MAKING Aged Out No longer eligible based on patient's age to complete this topic MENINGOCOCCAL GROUPS A/C/Y/W VACCINE Aged Out No longer eligible b ased on patient's age to complete this topic PNEUMOCOCCAL VACCINE Aged Out No long er eligible based on patient's age to complete this topic Procedures Procedure Name Priority Date/Time Associated Diagnosis Comments COMPREHENSIVE METABOLIC PANEL Routine 07/11/2023 1:23 PM CHRONOMETER ADJUSTER Iron deficiency anemia due to chronic blood loss from Last 3 Months or Most Recently Relevant to Health Maintenance Results * COMPREHENSIVE METABOLIC PANEL (07/11/2023 1:23 PM CHRONOMETER ADJUSTER) Glucose 81 70 - 105 mg/dL [facility] ACCOUNT BILL BUN 11 5.3 - 18.7 mg/dL [facility] Creatinine 0.69 0.57 - 1.11 mg/dL [facility] ACCOUNT BILL eGFR by CKD-EPI >90 >=90 mL/min/1.7 3 m2 [facility] BILL Sodium 143 136 - 145 mmol/L [facility]ILL Potassium 4.3 3.5 - 5.1 mmol/L [facility]OUNT BILL Chloride 106 98 - 107 mmol/L [facility] ACCOUNT BILL CO2 25 22 - 29 mmol/L [facility]OUNT BILL Calcium 9.7 8.4 - 10.4 mg/dL [facility] ACCOUNT BILL Protein Total 7.2 6.4 - 8.3 gm/dL [facility] ACCOUNT BILL Albumin 4.2 3.4 - 5.0 gm/dL [facility]OUNT BILL Bilirubin Total 0.5 0.2 - 1.2 mg/dL [facility] ACCOUNT BILL Alkaline Phosphatase 87 40 - 150 U/L [facility] ACCOUNT BILL AST 15 5 - 34 U/L [facility] ACCOUNT BILL ALT 14 0 - 55 U/L [facility] ACCOUNT BILL Blood BLOOD SPECIMEN / Unknown 07/11/2023 1:23 PM CHRONOMETER ADJUSTER 07/11/2023 Narrative Resulting Agency Comment Lab Testing performed at: [address] [id number] [place]ahan INSTRUCTOR MILITARY SCIENCE-INSOLE TAPE STITCHER [facility] - CHEMISTRY OR DERABLES Final Result [facility] ACCOUNT BILL [address] [place] [address] from Last 3 Months or Most Recently Relevant to Health Maintenance Insurance [facility] Care Teams Line Construction Supervisor Relationship Specialty Start Date End Date Cassandra Levin MD [address] [place] [address] PCP - General Internal Medicine 02/11/23
--- OUTSIDE RECORDS SUMMARY | 2024-11-30 11:22 | XMS_ITS | Clinical Summary ---
Author Organization [facility] [address] [place] [address] [place] [address] Care Team Providers Care Collection Manager Name Role Phone Unavailable Primary Care Provider Unavailabl e Allergies No known active allergies Medications baclofen (LIORESAL) 10 mg Oral tabletIndicatio ns:Neck strain Take 1 Tab by mouth 3 times daily as needed for Pain. 15 Tab 0 2 Active benzonatate (TESSALON) 100 mg Oral capsule Take 1 Cap by mouth 3 times daily as needed for Cough. 60 Cap 1 2 Active fluticasone (FLONASE) 50 mcg/spray [place], SuspensionIndic ations:Nasal congestion Administer 1 Wahoo in each nostril 2 times daily. 16 Gram 0 4 Active ALYACEN 1/35, 28, 1-35 mg-mcg tablet 4 Active Active Problems Patient Care Coordination No te Formatting of this note migh t be different from the original. Resident PCP - TYREL DALE DO No known active problems Family History Medical History Relation Name Comments Healthy Brother Diabetes Father Healthy Father Healthy Mother Hypertension Mother Healthy Sister Relation Name Status Comments Brother Alive Father Alive Maternal Grandfather Alive Maternal Grandmother Alive Mother Alive Paternal Grandfather Alive Paternal Grandmother Alive Sister Alive Social History Tobacco Use Types Packs/Day Years Used Date Smoking Tobacco: Never Smokeless Tobacco: Never Alcohol Use Standard Drinks/Week Comments Yes 3.3 (1 standard drink = 0.6 oz p ure alcohol) Comments No Sex and Gender Information Value Date Recorded Sex Assigned at Not on file Legal Sex Female 6:02 AM REHEATER HELPER Gender Identity Not on file Sexual Orientation Not on file Occupation Industry Job Start Date Job End Date Not on file Not on file Not on file Not on file Last Filed Vital Signs Vital Sign Reading Time Taken Comments Blood Pressure 102/76 07/02/2013 4:39 PM REHEATER HELPER Pulse 80 07/02/2013 4:39 PM REHEATER HELPER Temperature 36.8 C (98.3 F) 07/02/2013 4:39 PM REHEATER HELPER Respiratory Rate - - Oxygen Saturation - - Inhaled Oxygen Concentration - - Weight 64.9 kg (143 lb) 07/02/2013 4:39 PM REHEATER HELPER Height 162.6 cm (5' 4) 07/02/2013 4:39 PM REHEATER HELPER Body Mass Index 24.55 07/02/2013 4:39 PM REHEATER HELPER Plan of Treatment Health Maintenance Due Date Last Done Comments DTAP/TDAP/TD VACCINES (1 - Tdap) 10/07/1999 HEPATITIS B VACCINES (1 of 3 - 19+ 3-dose series) 10/07/1999 HPV/Cotest (21-29) 2001 CERVICAL CANCER SCREENING 2010 HPV/Cotest (30-65) 2010 PAP SMEAR 2010 BREAST CANCER SCREENING 2020 INFLUENZA VACCINE (#1) 2024 HPV VACCINES Aged Out No longer eligi ble based on patient's age to complete this topic Insurance
--- OUTSIDE RECORDS SUMMARY | 2024-11-30 11:22 | XMS_ITS | Encounter Summary ---
Author Organization [facility] Address [address] [place] [address] Phone Care Team Providers Care Boring Machine Operator Helper Name Role Phone Cassandra Levin MD Primary Care Provider [phone] Encounter Details Date Type Department Care Team (Late st Contact Info) Description 01/21/2023 Telephone [facility] 7th [place] [address] [place] [address] Sirena Quiles Social History Tobacco Use Types Packs/Day Years Used Date Smoking Tobacco: Never Smokeless Tobacco: Never AUDIT-C Answer Date Recorded Q1: How often do you have a drink containing alc ohol? Monthly or less 01/15/2023 Average Number of Drinks Not on file 023 Q3: How often do you have si x or more drinks on one occasion? Never 01/15/2023 Comments No Sex and Gender Information Value Date Recorded Sex Assigned at Not on file Legal Sex Female 9:16 PM SUPERVISOR SHELLFISH FARMING Gender Identity Not on file Sexual Orientation Not on file documented as of this encounter Plan of Treatment Not on file documented as of this encounter Visit Diagnoses Not on filedocumented in this encounter Care Teams Boring Machine Operator Helper Relationship Specialty Start Date End Date Cassandra Levin MD [address] [place] [address] PCP - General Internal Medicine 03/19/22 documented as of this encounter
== END 2024-11-30 10:27 | disposition home or self-care (01) ==
PROVIDERS: PCP Internal Medicine; Visit Provider Obstetrics & Gynecology
DX: R92.8 Other abnormal and inconclusive findings on diagnostic imaging of breast (principal)
CPT/HCPCS: 76641; 77062; 77066; G0279